=== PATIENT | female | born 1990 | race Caucasian/White ===

== ENCOUNTER 2016-09-11 18:29 | Emergency (ER) | payer BC, OTHER ==
[2016-09-11] MEDS ORDERED: Lidocaine 1% 5ml(IM or SUTURE)(PAIN CLINIC) IJ ONE (18:40)
[2016-09-11] MEDS ORDERED: CLINDAMYCIN HCL 150 MG CAPSULE PO ONE (19:08)
[2016-09-11 19:38] VITALS: BP 148/104
--- NOTE | 2016-09-12 09:31 | ED Physician Documentation ---
General Adult - HISTORIAN Historian: patient - HPI Stated Complaint: dog bite Chief Complaint: General Adult Onset: minutes Timing: still present Severity: moderate Further Comments: yes (Pt is a 26 yo female who sustained a dog bite to her R calf from her neighbor's dog. Dog nipped at pt from behind as she was walking in front of it. Laceration is about 2 cm. Tetanus is utd.) - ROS CONST: no problems EYES/ENT: none CVS/RESP: none GI/: none MS/SKIN/LYMPH: other (dog bite/laceration R calf) - PAST HX Past History: other (C-sec) Allergies/Adverse Reactions: Allergies Allergy/AdvReac Type Severity Reaction Status Date / Time Penicillins Allergy Mild Rash Verified 09/11/16 18:33 Home Medications: Ambulatory Orders Medication Instructions Recorded Clindamycin HCl 300 mg PO Q6H #20 capsule 09/11/16 - SOCIAL HX Smoking History: non-smoker - FAMILY HX Family History: No - VITAL SIGNS Vital Signs: Vital Signs Temp Pulse Resp BP Pulse Ox 98.2 F 92 H 16 148/104 99 09/11/16 19:15 09/11/16 19:15 09/11/16 19:15 09/11/16 19:15 09/11/16 19:15 - REVIEWED ASSESSMENTS Nursing Assessment Reviewed: Yes Vitals Reviewed: Yes Procedures Wound Location: lower extremity (R inner calf) Wound's Depth, Shape: irregular Wound Explored: no foreign body removed Irrigated w/ Saline (ccs): 50 Betadine Prep?: No (Shur-clens used in place of Betadine) Anesthesia: 1% Lidocaine Wound Debrided: minimal Wound Repaired With: sutures Suture Size/Type: 4:0 Number of Sutures: 4 Progress - Progress Progress: Rx Clindamycin 300 mg po q6h x 5 days, 1st dose in ER. f/u with pcp in 5 to 7 days for suture removal. May also apply topical antibiotic such as Neosporin, Bacitracin, or Triple Antibiotic to sutured area twice daily for 5 days. ED Results Lab/Radiology - Orders Orders: ED Orders Category Date Time Status Clindamycin HCl [Cleocin] Med 09/11/16 19:08 Discontinued 300 mg PO NOW ONE Lidocaine 1% 5ml(IM or SUTURE) [Xylocaine] Med 09/11/16 18:40 Discontinued 50 mg IJ NOW ONE General Adult Physical Exam - PHYSICAL EXAM GENERAL APPEARANCE: no distress NECK: normal inspection, supple RESPIRATORY: no resp distress BACK: normal inspection SKIN: other (2.5 cm irregular laceration R inner calf s/p dog bite.) EXTREMITIES: other (2.5 cm irregular laceration R inner calf s/p dog bite.) NEURO: oriented X3, motor nml, sensation nml Discharge Clincal Impression: dog bite, R calf laceration Prescriptions: Clindamycin HCl 300 mg PO Q6H #20 capsule Referrals: Akil Fuller MD [Primary Care Provider] - Home Medications: Ambulatory Orders Clindamycin HCl 300 mg PO Q6H #20 capsule 09/11/16 Condition: Good Disposition: 01 HOME, SELF-CARE Decision to Admit: NO Decision Time: 09:37
== END 2016-09-11 19:15 | disposition home or self-care (01) ==
LOC: ED 18:29
DX: S81.851A Open bite, right lower leg, initial encounter (principal); W54.0XXA Bitten by dog, initial encounter; Y93.9 Activity, unspecified; Y99.9 Unspecified external cause status
CPT/HCPCS: 12011; 99283; A9270